=== PATIENT | female | born 1985 | race Caucasian/White ===

== ENCOUNTER 2017-06-08 00:13 | Outpatient (CLI) | payer BC ==
[~2017-06-08] VITALS: Ht 167.6 cm; Wt 63.5 kg
[~2017-06-08 00:13] MED LIST: ALEVE220 MG PO; PRENATAL TABLE1 EAC3 PO
[2017-06-08 00:45] VITALS: BP 118/73
[2017-06-08] MEDS ORDERED: COLACE100 MG PO (01:02)
[2017-06-08] MEDS ORDERED: ENDOCET 5-3251 EACH PO (22:51)
[2017-06-08] MEDS ORDERED: IBUPROFEN800 MG PO (22:51)
== END 2017-06-08 03:00 | disposition home or self-care (01) ==
LOC: LDRP-OP 00:13 → 2WEST 00:14 → LDRP-OP 07-06 16:24
DX: O47.1 False labor at or after 37 completed weeks of gestation (principal); Z3A.38 38 weeks gestation of pregnancy
CPT/HCPCS: 59025; G0378; J7120

== ENCOUNTER 2017-06-08 21:36 | Inpatient (IN) | payer BC ==
[~2017-06-08] VITALS: Ht 152.4 cm; Wt 63.6 kg
[~2017-06-08 21:36] MED LIST changes: +COLACE100 MG PO
[2017-06-08 22:04] VITALS: BP 118/79
[2017-06-08] MEDS ORDERED: IBUPROFEN800 MG PO (22:51)
[2017-06-08] MEDS ORDERED: ENDOCET 5-3251 EACH PO (22:51)
[2017-06-09] VITALS (7 sets, daily range): BP systolic 96–106; BP diastolic 52–68
[2017-06-09 07:12] LABS: EOSINOPHIL (%) 0 % (0-5); HEMATOCRIT 30.5 % (36.0-46.0); IMMATURE GRANULOCYTE (%) 0.4 % (0.0-0.7); IMMATURE GRANULOCYTE COUNT 0.1 K/uL; INSTRUMENT ABS NEUTROPHIL CT 11.5 K/uL; LYMPHOCYTE COUNT 0.5 K/uL (1.0-2.8); MCHC 33.8 G/DL (30.0-36.0); MCV 97.8 FL (83-99); MONOCYTE (%) 5.3 % (3-12); MONOCYTE COUNT 0.7 K/uL (0-0.8); NEUTROPHIL (%) 90.4 % (45-76); NEUTROPHIL COUNT 11.5 K/uL (1.8-6.4); PLATELET COUNT 163 K/uL (156-360); RBC DIS.WIDTH-CV 13.9 % (11.8-14.6); RBC DIS.WIDTH-SD 50.2 % (39-53); RED BLOOD COUNT 3.12 M/uL (3.80-5.20); WHITE BLOOD COUNT 12.8 K/uL (4.1-10.2)
[2017-06-10 07:09] VITALS: BP 92/59
[2017-06-10 11:09] VITALS: BP 104/64
[2017-06-10 15:12] VITALS: BP 111/69
[2017-06-11 07:36] VITALS: BP 90/65
[2017-06-11 15:36] VITALS: BP 98/61
== END 2017-06-11 17:20 | disposition home or self-care (01) | DRG 765 ==
LOC: LDRP-OP 21:36 → 2WEST 21:37 → LDRP-OP 07-06 03:18
PROVIDERS: Obstetrics & Gynecology
PROC: 10D00Z1 Extraction of Products of Conception, Low, Open Approach (ICD-10-PCS; principal; 2017-06-08)
DX: O32.8XX1 Maternal care for other malpresentation of fetus, fetus 1 (principal); O99.324 Drug use complicating childbirth; F11.20 Opioid dependence, uncomplicated; Z3A.40 40 weeks gestation of pregnancy; Z37.0 Single live birth; O77.0 Labor and delivery complicated by meconium in amniotic fluid
CPT/HCPCS: 36415; 59025; 85025; 86850; 86900; 86901; G0378; J1100; J1580; J2274; J2405; J7050; J7120

== ENCOUNTER 2017-06-16 17:01 | Inpatient (IN) | payer BC ==
[~2017-06-16] VITALS: Ht 167.6 cm; Wt 56.9 kg
[~2017-06-16 17:01] MED LIST changes: +ENDOCET 5-3251 EACH PO; +IBUPROFEN800 MG PO
[2017-06-16 18:00] VITALS: BP 112/75
[2017-06-16 20:31] VITALS: BP 110/65
[2017-06-16 22:20] LABS: EOSINOPHIL (%) 0.7 % (0-5); EOSINOPHIL COUNT 0.1 K/uL (0-0.3); HEMATOCRIT 32.3 % (36.0-46.0); IMMATURE GRANULOCYTE (%) 1.2 % (0.0-0.7); IMMATURE GRANULOCYTE COUNT 0.1 K/uL; INSTRUMENT ABS NEUTROPHIL CT 9.6 K/uL; LYMPHOCYTE COUNT 0.7 K/uL (1.0-2.8); MCH 31.7 PG (29.0-34.0); MCHC 33.4 G/DL (30.0-36.0); MCV 94.7 FL (83-99); MEAN PLAT.VOLUME 8.7 uM^3 (9.5-12.4); MONOCYTE (%) 5.1 % (3-12); MONOCYTE COUNT 0.6 K/uL (0-0.8); NEUTROPHIL (%) 86.2 % (45-76); NEUTROPHIL COUNT 9.6 K/uL (1.8-6.4); RBC DIS.WIDTH-CV 13.3 % (11.8-14.6); RBC DIS.WIDTH-SD 46.7 % (39-53); RED BLOOD COUNT 3.41 M/uL (3.80-5.20); WHITE BLOOD COUNT 11.1 K/uL (4.1-10.2)
[2017-06-16 22:24] LABS: PLATELET COUNT 346 K/uL (156-360)
[2017-06-17 00:28] VITALS: BP 100/62
[2017-06-17 04:44] VITALS: BP 102/65
[2017-06-17 06:55] VITALS: BP 105/73
[2017-06-17 07:18] LABS: EOSINOPHIL (%) 1.1 % (0-5); EOSINOPHIL COUNT 0.1 K/uL (0-0.3); HEMATOCRIT 36.3 % (36.0-46.0); IMMATURE GRANULOCYTE (%) 1.5 % (0.0-0.7); IMMATURE GRANULOCYTE COUNT 0.1 K/uL; INSTRUMENT ABS NEUTROPHIL CT 6.6 K/uL; LYMPHOCYTE COUNT 0.9 K/uL (1.0-2.8); MCH 32.2 PG (29.0-34.0); MCHC 33.3 G/DL (30.0-36.0); MCV 96.5 FL (83-99); MONOCYTE (%) 5.8 % (3-12); MONOCYTE COUNT 0.5 K/uL (0-0.8); NEUTROPHIL (%) 80.8 % (45-76); NEUTROPHIL COUNT 6.6 K/uL (1.8-6.4); PLATELET COUNT 362 K/uL (156-360); RBC DIS.WIDTH-CV 13.5 % (11.8-14.6); RBC DIS.WIDTH-SD 48.2 % (39-53); RED BLOOD COUNT 3.76 M/uL (3.80-5.20); WHITE BLOOD COUNT 8.1 K/uL (4.1-10.2)
[2017-06-17 11:13] VITALS: BP 100/58
[2017-06-17 16:00] VITALS: BP 98/64
[2017-06-17] MEDS ORDERED: FLAGYL500 MG PO (18:46)
[2017-06-17] MEDS ORDERED: ERY-TAB500 MG PO (18:46)
[2017-06-17 19:25] VITALS: BP 98/58
== END 2017-06-17 21:20 | disposition home or self-care (01) | DRG 776 ==
LOC: 2EAST 17:01 → ENRESERV 17:04 → 2EAST 17:22 → ENPENDDIS 06-17 → 2EAST 06-17 21:20
PROVIDERS: Obstetrics & Gynecology
DX: O86.0 Infection of obstetric surgical wound (principal); O90.2 Hematoma of obstetric wound; R50.82 Postprocedural fever; F41.0 Panic disorder [episodic paroxysmal anxiety]
CPT/HCPCS: 85025; 87040; J0456; S0030